=== PATIENT | male | born 2000 | race Hispanic/Latino ===

== ENCOUNTER 2018-07-18 20:52 | Emergency (ER) | payer BC ==
[~2018-07-18] VITALS: Ht 210.8 cm; Wt 106.6 kg
== END 2018-07-18 21:51 | disposition home or self-care (01) ==
LOC: ER 20:52
DX: M54.5 Low back pain (principal); S39.012A Strain of muscle, fascia and tendon of lower back, initial encounter
CPT/HCPCS: 99283

== ENCOUNTER 2019-10-02 22:26 | Emergency (ER) | payer BC ==
[~2019-10-02] VITALS: Ht 210.8 cm; Wt 120.2 kg
[2019-10-03] MEDS ORDERED: HYDROCODONE/APAP 5MG-325MG TAB PO ONE (00:30)
--- NOTE | 2019-10-03 01:29 | Diagnostic Imaging Report ---
KNEE RIGHT THREE VIEWS - 3 views HISTORY: Pain COMPARISON: None available. FINDINGS:. At the time of this interpretation, the examination is on exceptions list (demographics not confirmed). Bones: No acute displaced fracture. Osseous alignment is within normal limits. Joints: The joint spaces are well-maintained. Mild lateral compartment chondrocalcinosis. Soft tissues: The soft tissues appear unremarkable. IMPRESSION: No acute osseous abnormality. Signed by: Dr. Padma Nielson M.D. on 10/03/2019 1:27 AM
--- NOTE | 2019-10-03 01:30 | Diagnostic Imaging Report ---
ELBOW LEFT COMPLETE - 3 views HISTORY: Pain COMPARISON: None available. FINDINGS: At the time of this interpretation, the examination is on exceptions list (demographics not confirmed). Bones: No acute displaced fracture. Osseous alignment is within normal limits. Joints: The joint spaces are well-maintained. Soft tissues: The soft tissues appear unremarkable. IMPRESSION: No acute radiographic abnormality. Signed by: Dr. Padma Nielson M.D. on 10/03/2019 1:28 AM
[2019-10-03 02:29] VITALS: BP 144/89
== END 2019-10-03 02:35 | disposition home or self-care (01) ==
LOC: ER 22:26
DX: S83.411A Sprain of medial collateral ligament of right knee, initial encounter (principal); M25.522 Pain in left elbow; Y93.83 Activity, rough housing and horseplay; Y92.008 Other place in unspecified non-institutional (private) residence as the place of occurrence of the external cause
CPT/HCPCS: 99283